=== PATIENT | male | born 1990 | race Caucasian/White ===

== ENCOUNTER 2018-04-03 14:26 | Emergency (ER) | payer OTHER ==
[~2018-04-03] VITALS: Ht 188 cm; Wt 120.5 kg
[~2018-04-03 14:26] MED LIST: DIPH-423 PO
[2018-04-03] MEDS ORDERED: normal saline 1000ML IV soln IVB ONE (14:45)
[2018-04-03 15:09] LABS: CLARITY,URINE CLEAR (Clear); COLOR,URINE YELLOW (Yellow); GLUCOSE, URINE NEGATIVE (Neg); KETONES,URINE NEGATIVE (Neg); LEUKOCYTE ESTERASE ,URINE NEGATIVE (Neg); NITRITES, URINE NEGATIVE (Neg); OCCULT BLOOD,URINE NEGATIVE (Neg); PROTEIN,URINE NEGATIVE (Neg); UROBILINOGEN,URINE 0.2 E.U/dL (0.2-1.0)
[2018-04-03 15:12] LABS: UA COLLECTION TYPE CLN CATCH MIDSTREAM
[2018-04-03 15:20] LABS: BASOPHILS # (AUTO) 0.1 X10'3 (0-0.2); BASOPHILS % (AUTO) 0.6 % (0-1); EOSINOPHILS # (AUTO) 0.3 X10'3 (0-0.9); EOSINOPHILS % (AUTO) 1.8 % (0-6); HEMATOCRIT 43.3 % (42.0-52.0); HEMOGLOBIN 15.1 g/dl (14.0-17.9); LYMPHOCYTES % (AUTO) 18.6 % (21-51); MEAN CORPUSCULAR HEMOGLOBIN 30.7 PG (27.0-31.0); MEAN CORPUSCULAR HGB CONC 34.9 % (33.0-36.5); MEAN CORPUSCULAR VOLUME 87.8 FL (78-98); MEAN PLATELET VOLUME 9.2 FL (7.4-10.4); MONOCYTES # (AUTO) 1.3 X10'3 (0-0.9); MONOCYTES % (AUTO) 8.3 % (2-12); NEUTROPHILS # (AUTO) 11.4 X10'3 (1.8-7.7); NEUTROPHILS % (AUTO) 70.7 % (42-75); PLATELET COUNT 218 X10'3 (140-440); RED BLOOD COUNT 4.93 X10'6 (4.70-6.10); RED CELL DISTRIBUTION WIDTH 13.2 % (11.5-14.5); WHITE BLOOD COUNT 16.1 X10'3 (4.5-11.0)
[2018-04-03 15:36] LABS: ALANINE AMINOTRANSFERASE 47 U/L (12-78); ALBUMIN 3.9 G/DL (3.4-5.0); ALBUMIN/GLOBULIN RATIO 1.1 (1.1-1.5); ALKALINE PHOSPHATASE 103 IU/L (46-116); ANION GAP 9 (8-16); BILIRUBIN,TOTAL 0.4 MG/DL (0.1-1.0); BLOOD UREA NITROGEN 16 MG/DL (7-18); BUN/CREATININE RATIO 13.2 (5.4-32.0); CALCIUM 8.7 MG/DL (8.5-10.1); CHLORIDE 103 MMOL/L (99-107); CREATININE 1.21 MG/DL (0.60-1.10); SODIUM 140 MMOL/L (135-145); TOTAL PROTEIN 7.6 G/DL (6.4-8.2); eGFR 72 ML/MIN
[2018-04-03] MEDS ORDERED: tamsulosin 0.4mg capsule PO STA (15:41)
[2018-04-03 15:42] LABS: GLUCOSE 86 MG/DL (70-104)
[2018-04-03] MEDS ORDERED: ketorolac tromethamine 15mg/ml inj. IV ONE (15:45)
[2018-04-03 15:48] LABS: ASPARTATE AMINO TRANSFERASE 13 U/L (10-37)
[2018-04-03] MEDS ORDERED: FLO0.4C PO (16:15)
[2018-04-03] MEDS ORDERED: NAPR-56 PO (16:15)
[2018-04-03] MEDS ORDERED: HYDR-565 PO (16:15)
[2018-04-03 16:34] VITALS: BP 117/63
== END 2018-04-03 16:37 | disposition home or self-care (01) ==
LOC: ER 14:26
DX: N20.0 Calculus of kidney (principal); Z79.899 Other long term (current) drug therapy
CPT/HCPCS: 36415; 74176; 80053; 81003; 83605; 84145; 85025; 87040; 96374; 99285; J1885; J7030

== ENCOUNTER 2019-03-17 16:50 | Emergency (ER) | payer OTHER ==
[~2019-03-17] VITALS: Ht 188 cm; Wt 120.5 kg
[2019-03-17] MEDS ORDERED: ketorolac tromethamine 15mg/ml inj. IV ONE (17:15)
[2019-03-17] MEDS ORDERED: morphine 4 MG/ML inj SYRINge IV ONE (17:25)
[2019-03-17] MEDS ORDERED: ondansetron/PF 4mg/2ml inj IV ONE (17:25)
[2019-03-17] MEDS ORDERED: normal saline 1000ML IV soln IVB ONE ×2 (17:25→19:15)
[2019-03-17] MEDS ORDERED: morphine 10mg/ml inj. IV ONE ×2 (17:30→19:15)
--- NOTE | 2019-03-17 17:56 | NUR ---
PT MEDICATED WITH TORADOL, MORPHINE, ZOFRAN AND 1L IVF.
[2019-03-17 18:09] LABS: BASOPHILS # (AUTO) 0.1 X10'3 (0-0.2); BASOPHILS % (AUTO) 0.3 % (0-1); EOSINOPHILS % (AUTO) 0.1 % (0-6); HEMATOCRIT 41.2 % (42.0-52.0); HEMOGLOBIN 14.1 g/dl (14.0-17.9); LYMPHOCYTES # (AUTO) 1.5 X10'3 (1.1-4.8); LYMPHOCYTES % (AUTO) 5.8 % (21-51); MEAN CORPUSCULAR HEMOGLOBIN 30.5 PG (27.0-31.0); MEAN CORPUSCULAR HGB CONC 34.1 g/dL (33.0-36.5); MEAN CORPUSCULAR VOLUME 89.5 FL (78-98); MEAN PLATELET VOLUME 9.1 FL (7.4-10.4); MONOCYTES # (AUTO) 1.6 X10'3 (0-0.9); MONOCYTES % (AUTO) 6.3 % (2-12); NEUTROPHILS # (AUTO) 22.5 X10'3 (1.8-7.7); NEUTROPHILS % (AUTO) 87.5 % (42-75); PLATELET COUNT 169 X10'3 (140-440); RED CELL DISTRIBUTION WIDTH 12.9 % (11.5-14.5)
[2019-03-17 18:11] LABS: WHITE BLOOD COUNT 25.7 X10'3 (4.5-11.0)
[2019-03-17 18:23] LABS: PLATELET ESTIMATE NORMAL; TOTAL CELLS COUNTED 100
[2019-03-17 18:24] LABS: ALANINE AMINOTRANSFERASE 46 U/L (12-78); ALBUMIN 3.8 G/DL (3.4-5.0); ALBUMIN/GLOBULIN RATIO 1.1 (1.1-1.5); ALKALINE PHOSPHATASE 74 IU/L (46-116); ANION GAP 11 (8-16); ASPARTATE AMINO TRANSFERASE 11 U/L (10-37); BILIRUBIN,TOTAL 0.4 MG/DL (0.1-1.0); BLOOD UREA NITROGEN 13 MG/DL (7-18); BUN/CREATININE RATIO 7.9 (5.4-32.0); CHLORIDE 105 MMOL/L (99-107); CREATININE 1.64 MG/DL (0.60-1.10); GLUCOSE 110 MG/DL (70-104); LIPASE 54 U/L (73-393); POTASSIUM 4.6 MMOL/L (3.5-5.1); SODIUM 139 MMOL/L (135-145); TOTAL CARBON DIOXIDE 23.5 MMOL/L (24-32); TOTAL PROTEIN 7.2 G/DL (6.4-8.2); eGFR 50 ML/MIN
[2019-03-17 18:24] LABS: CLARITY,URINE SLIGHTLY CLOUDY (Clear); COLOR,URINE YELLOW (Yellow); GLUCOSE, URINE NEGATIVE (Neg); KETONES,URINE NEGATIVE (Neg); LEUKOCYTE ESTERASE ,URINE NEGATIVE (Neg); NITRITES, URINE NEGATIVE (Neg); OCCULT BLOOD,URINE LARGE (Neg); PH,URINE 5.5 (4.8-8.0); PROTEIN,URINE TRACE mg/dl (Neg); UA COLLECTION TYPE VOIDED; UROBILINOGEN,URINE 0.2 E.U/dL (0.2-1.0)
[2019-03-17 18:32] LABS: BACTERIA,URINE FEW /HPF (Neg); SQUAMOUS EPITHELIAL CELL,UR FEW /LPF (FEW); WBC,URINE NONE SEEN /HPF (0-4)
[2019-03-17 18:46] LABS: CALCIUM 8.6 MG/DL (8.5-10.1)
[2019-03-17] MEDS ORDERED: FLO0.4C PO (19:15)
[2019-03-17 20:08] VITALS: BP 140/97
== END 2019-03-17 20:13 | disposition home or self-care (01) ==
LOC: ER 16:50
DX: N20.0 Calculus of kidney (principal); R11.10 Vomiting, unspecified; E66.9 Obesity, unspecified; Z79.899 Other long term (current) drug therapy
CPT/HCPCS: 36415; 80053; 81001; 83690; 85025; 85610; 96361; 96374; 96375; 96376; 99283; J1885; J2270; J2405; J7030

== ENCOUNTER 2019-04-06 09:01 | Emergency (ER) | payer OTHER ==
[~2019-04-06] VITALS: Ht 188 cm; Wt 130.0 kg
[~2019-04-06 09:01] MED LIST changes: +FLO0.4C PO
[2019-04-06 10:14] LABS: BASOPHILS # (AUTO) 0.1 X10'3 (0-0.2); BASOPHILS % (AUTO) 0.7 % (0-1); EOSINOPHILS # (AUTO) 0.3 X10'3 (0-0.9); EOSINOPHILS % (AUTO) 2.4 % (0-6); HEMATOCRIT 45.1 % (42.0-52.0); HEMOGLOBIN 15.4 g/dl (14.0-17.9); LYMPHOCYTES # (AUTO) 5.1 X10'3 (1.1-4.8); MEAN CORPUSCULAR HEMOGLOBIN 30.1 PG (27.0-31.0); MEAN CORPUSCULAR HGB CONC 34.2 g/dL (33.0-36.5); MEAN PLATELET VOLUME 9.4 FL (7.4-10.4); MONOCYTES # (AUTO) 1.4 X10'3 (0-0.9); MONOCYTES % (AUTO) 11.1 % (2-12); NEUTROPHILS # (AUTO) 6.1 X10'3 (1.8-7.7); NEUTROPHILS % (AUTO) 46.8 % (42-75); PLATELET COUNT 220 X10'3 (140-440); RED BLOOD COUNT 5.12 X10'6 (4.70-6.10)
[2019-04-06] MEDS ORDERED: normal saline 1000ML IV soln IVB ONE (10:25)
[2019-04-06] MEDS ORDERED: meperidine/PF 50mg/ml syringe IV ONE ×3 (10:25→12:35)
[2019-04-06] MEDS ORDERED: sildenafil citrate 20mg tablet PO SCH (10:25)
[2019-04-06] MEDS ORDERED: ketorolac trometh. 30mg/ml inj. IV ONE (10:25)
[2019-04-06 10:29] LABS: ALANINE AMINOTRANSFERASE 47 U/L (12-78); ALBUMIN 4.5 G/DL (3.4-5.0); ALBUMIN/GLOBULIN RATIO 1.2 (1.1-1.5); ALKALINE PHOSPHATASE 80 IU/L (46-116); ANION GAP 10 (8-16); ASPARTATE AMINO TRANSFERASE 9 U/L (10-37); BILIRUBIN,TOTAL 0.4 MG/DL (0.1-1.0); BLOOD UREA NITROGEN 19 MG/DL (7-18); BUN/CREATININE RATIO 14.5 (5.4-32.0); CHLORIDE 107 MMOL/L (99-107); CREATININE 1.31 MG/DL (0.60-1.10); GLUCOSE 115 MG/DL (70-104); SODIUM 144 MMOL/L (135-145); TOTAL CARBON DIOXIDE 26.9 MMOL/L (24-32); TOTAL PROTEIN 8.2 G/DL (6.4-8.2); eGFR 65 ML/MIN
[2019-04-06] MEDS ORDERED: NAPR-56 PO (12:34)
[2019-04-06] MEDS ORDERED: HYDR-4353 PO (12:34)
[2019-04-06] MEDS ORDERED: TADA20TA PO (12:34)
[2019-04-06 13:29] VITALS: BP 113/70
== END 2019-04-06 13:36 | disposition home or self-care (01) ==
LOC: ER 09:02
DX: N23 Unspecified renal colic (principal); Z87.442 Personal history of urinary calculi; Z79.899 Other long term (current) drug therapy
CPT/HCPCS: 36415; 74176; 80053; 85025; 85610; 96374; 96375; 96376; 99284; J1885; J2175; J7030

== ENCOUNTER 2019-05-03 03:35 | Emergency (ER) | payer OTHER ==
[~2019-05-03] VITALS: Ht 182.9 cm; Wt 129.0 kg
[~2019-05-03 03:35] MED LIST changes: -FLO0.4C PO; +NAPR-56 PO; +TADA20TA PO
[2019-05-03] MEDS ORDERED: acetaminophen 325mg tablet PO ONE (04:00)
[2019-05-03] MEDS ORDERED: normal saline 1000ML IV soln IVB ONE (04:00)
[2019-05-03] MEDS ORDERED: penicillin V potassium 500mg tablet PO ONE (04:30)
[2019-05-03] MEDS ORDERED: PENI500T2 PO (04:32)
[2019-05-03] MEDS ORDERED: HYDR-4383 PO (05:10)
[2019-05-03 05:16] VITALS: BP 132/78
== END 2019-05-03 05:18 | disposition home or self-care (01) ==
LOC: ER 03:36
DX: J02.0 Streptococcal pharyngitis (principal); R11.2 Nausea with vomiting, unspecified; Z87.442 Personal history of urinary calculi; Z79.2 Long term (current) use of antibiotics; Z79.899 Other long term (current) drug therapy
CPT/HCPCS: 87880; 96360; 99283; J7030

== ENCOUNTER 2019-08-21 07:45 | Emergency (ER) | payer OTHER ==
[~2019-08-21] VITALS: Ht 188 cm; Wt 127.0 kg
[~2019-08-21 07:45] MED LIST changes: +HYDR-4383 PO; -NAPR-56 PO
--- NOTE | 2019-08-21 07:56 | NUR ---
PAIN STARTING AT LEFT FLANK AREA RADIATING TO LEFT ABD.
[2019-08-21] MEDS ORDERED: ondansetron/PF 4mg/2ml inj IV ONE (08:05)
[2019-08-21] MEDS ORDERED: normal saline 1000ML IV soln IVB ONE (08:05)
[2019-08-21] MEDS ORDERED: LORazepam 2 mg/ml vial IV ONE (08:05)
[2019-08-21] MEDS ORDERED: ketorolac trometh. 30mg/ml inj. IV ONE (08:05)
[2019-08-21] MEDS ORDERED: tamsulosin 0.4mg capsule PO ONE (08:14)
[2019-08-21] MEDS: morphine 4 MG/ML inj SYRINge IV PRN ×2 (08:17→08:44)
[2019-08-21 08:28] LABS: BASOPHILS # (AUTO) 0.1 X10'3 (0-0.2); BASOPHILS % (AUTO) 0.8 % (0-1); EOSINOPHILS # (AUTO) 0.3 X10'3 (0-0.9); EOSINOPHILS % (AUTO) 2.6 % (0-6); HEMATOCRIT 43.3 % (42.0-52.0); HEMOGLOBIN 14.9 g/dl (14.0-17.9); LYMPHOCYTES # (AUTO) 5.1 X10'3 (1.1-4.8); LYMPHOCYTES % (AUTO) 38.2 % (21-51); MEAN CORPUSCULAR HEMOGLOBIN 30.1 PG (27.0-31.0); MEAN CORPUSCULAR HGB CONC 34.4 g/dL (33.0-36.5); MEAN CORPUSCULAR VOLUME 87.7 FL (78-98); MEAN PLATELET VOLUME 9.4 FL (7.4-10.4); MONOCYTES # (AUTO) 1.4 X10'3 (0-0.9); MONOCYTES % (AUTO) 10.7 % (2-12); NEUTROPHILS # (AUTO) 6.3 X10'3 (1.8-7.7); NEUTROPHILS % (AUTO) 47.7 % (42-75); PLATELET COUNT 204 X10'3 (140-440); RED BLOOD COUNT 4.94 X10'6 (4.70-6.10); RED CELL DISTRIBUTION WIDTH 13.1 % (11.5-14.5); WHITE BLOOD COUNT 13.3 X10'3 (4.5-11.0)
[2019-08-21 08:30] LABS: CLARITY,URINE CLOUDY (Clear); COLOR,URINE YELLOW (Yellow); GLUCOSE, URINE NEGATIVE (Neg); KETONES,URINE NEGATIVE (Neg); LEUKOCYTE ESTERASE ,URINE NEGATIVE (Neg); OCCULT BLOOD,URINE LARGE (Neg); PH,URINE 5.5 (4.8-8.0); PROTEIN,URINE 100 mg/dl (Neg)
[2019-08-21 08:46] LABS: ALANINE AMINOTRANSFERASE 34 U/L (12-78); ALBUMIN 3.9 G/DL (3.4-5.0); ALBUMIN/GLOBULIN RATIO 1.1 (1.1-1.5); ALKALINE PHOSPHATASE 76 IU/L (46-116); ANION GAP 9 (8-16); ASPARTATE AMINO TRANSFERASE 6 U/L (10-37); BILIRUBIN,TOTAL 0.2 MG/DL (0.1-1.0); BLOOD UREA NITROGEN 12 MG/DL (7-18); BUN/CREATININE RATIO 13.5 (5.4-32.0); CALCIUM 8.7 MG/DL (8.5-10.1); CHLORIDE 109 MMOL/L (99-107); CREATININE 0.89 MG/DL (0.60-1.10); GLUCOSE 136 MG/DL (70-104); SODIUM 142 MMOL/L (135-145); TOTAL CARBON DIOXIDE 24.1 MMOL/L (24-32); TOTAL PROTEIN 7.4 G/DL (6.4-8.2); eGFR > 90 ML/MIN
[2019-08-21] MEDS ORDERED: HYDROmorphone 1 mg/ml syringe IV ONE (08:55)
[2019-08-21] MEDS ORDERED: proCHLORperazine 10 MG/2 ml inj IV ONE (08:55)
[2019-08-21 09:04] LABS: UA COLLECTION TYPE NON-SPECIFIED
[2019-08-21 09:09] LABS: NITRITES, URINE NEGATIVE (Neg)
[2019-08-21 09:10] LABS: RBC,URINE TNTC /HPF (0-2); SQUAMOUS EPITHELIAL CELL,UR FEW /LPF (FEW); WBC,URINE 0-4 /HPF (0-4)
[2019-08-21 09:11] LABS: CAL OXALATE CRYSTALS FEW /HPF (NEGATIVE); MUCUS STRANDS MODERATE /LPF (Neg)
[2019-08-21 09:12] LABS: BACTERIA,URINE FEW /HPF (Neg); HYALINE CASTS 0-3 /LPF (NEGATIVE)
[2019-08-21] MEDS ORDERED: ONDA4TAB6 PO (09:46)
[2019-08-21] MEDS ORDERED: FLO0.4C PO (09:46)
[2019-08-21] MEDS ORDERED: KETO10TA2 PO (09:46)
--- NOTE | 2019-08-21 10:11 | NUR ---
PT SLEEPING QUIETLY.
[2019-08-21 10:29] VITALS: BP 129/82
== END 2019-08-21 10:32 | disposition home or self-care (01) ==
LOC: ER 07:45
DX: N23 Unspecified renal colic (principal); Z87.442 Personal history of urinary calculi; Z79.899 Other long term (current) drug therapy
CPT/HCPCS: 36415; 76775; 80053; 81001; 85025; 87088; 96374; 96375; 96376; 99284; J0780; J1170; J1885; J2060; J2270; J2405; J7030

== ENCOUNTER 2022-10-15 19:34 | Emergency (ER) | payer OTHER, MEDICAID ==
[~2022-10-15] VITALS: Ht 190.5 cm; Wt 131.8 kg
[~2022-10-15 19:34] MED LIST changes: +KETO10TA2 PO; +ONDA4TAB6 PO
[2022-10-15 19:47] VITALS: BP 148/91
[2022-10-15] MEDS ORDERED: sulfamethoxazole/trimethoprim DS (800/160mg) tablet PO ONE (20:20)
[2022-10-15] MEDS ORDERED: SULF1TAB45 PO (20:20)
== END 2022-10-15 20:49 | disposition home or self-care (01) ==
LOC: ER 19:35
DX: L08.89 Other specified local infections of the skin and subcutaneous tissue (principal)
CPT/HCPCS: 10060; 99283; A6449

== ENCOUNTER 2022-10-20 06:26 | Emergency (ER) | payer OTHER, MEDICAID ==
[~2022-10-20 06:26] MED LIST changes: +SULF1TAB45 PO
== END 2022-10-20 07:16 | disposition left against medical advice (07) ==
LOC: ER 06:27
DX: M79.646 Pain in unspecified finger(s) (principal); Z53.21 Procedure and treatment not carried out due to patient leaving prior to being seen by health care provider

== ENCOUNTER 2023-06-06 17:39 | Emergency (ER) | payer MEDICAID, OTHER ==
[~2023-06-06] VITALS: Ht 188 cm; Wt 138.2 kg
[~2023-06-06 17:39] MED LIST changes: -SULF1TAB45 PO
[2023-06-06 17:41] VITALS: BP 143/98; PULSE 105; RESP 18; TEMP 98.2; O2SAT 100
[2023-06-06] MEDS ORDERED: aspirin 81mg tab.chew PO ONE (17:45)
[2023-06-06 18:18] LABS: BASOPHILS # (AUTO) 0.2 X10'3 (0-0.2); BASOPHILS % (AUTO) 1.1 % (0-1); EOSINOPHILS # (AUTO) 0.4 X10'3 (0-0.9); EOSINOPHILS % (AUTO) 2.2 % (0-6); HEMOGLOBIN 15.2 g/dl (14.0-17.9); LYMPHOCYTES # (AUTO) 4.7 X10'3 (1.1-4.8); MEAN CORPUSCULAR HEMOGLOBIN 30.6 PG (27.0-31.0); MEAN CORPUSCULAR HGB CONC 33.7 g/dL (33.0-36.5); MEAN CORPUSCULAR VOLUME 90.8 FL (78-98); MONOCYTES # (AUTO) 1.7 X10'3 (0-0.9); MONOCYTES % (AUTO) 10.1 % (2-12); NEUTROPHILS # (AUTO) 9.9 X10'3 (1.8-7.7); NEUTROPHILS % (AUTO) 58.6 % (42-75); PLATELET COUNT 219 X10'3 (140-440); RED BLOOD COUNT 4.96 X10'6 (4.70-6.10); RED CELL DISTRIBUTION WIDTH 13.1 % (11.5-14.5); WHITE BLOOD COUNT 16.8 X10'3 (4.5-11.0)
[2023-06-06 18:33] LABS: ALANINE AMINOTRANSFERASE 33 U/L (12-78); ALBUMIN/GLOBULIN RATIO 1.2 (1.1-1.5); ALKALINE PHOSPHATASE 72 IU/L (46-116); ANION GAP 6 (8-16); ASPARTATE AMINO TRANSFERASE 12 U/L (10-37); BILIRUBIN,TOTAL 0.4 MG/DL (0.1-1.0); BLOOD UREA NITROGEN 11 MG/DL (7-18); BUN/CREATININE RATIO 10.9 (10.0-20.0); CALCIUM 9.3 MG/DL (8.5-10.1); CHLORIDE 102 MMOL/L (99-107); CREATININE 1.01 MG/DL (0.60-1.10); GLUCOSE 82 MG/DL (70-104); SODIUM 139 MMOL/L (135-145); TOTAL CARBON DIOXIDE 31.1 MMOL/L (24-32); TOTAL PROTEIN 7.4 G/DL (6.4-8.2); eCRCL 122 ML/MIN; eGFR 86 ML/MIN
[2023-06-06 18:40] LABS: MAGNESIUM 2.1 MG/DL (1.5-2.4)
[2023-06-06 18:53] LABS: PRO BRAIN NATRIURETIC PEPTIDE < 30 PG/ML (0-125)
== END 2023-06-06 21:32 | disposition home or self-care (01) ==
LOC: ER 17:39
DX: R07.89 Other chest pain (principal); I88.9 Nonspecific lymphadenitis, unspecified; Z79.899 Other long term (current) drug therapy
CPT/HCPCS: 36415; 71045; 80053; 83735; 83880; 84484; 85025; 93005; 99285; A5200

== ENCOUNTER 2024-02-14 22:07 | Emergency (ER) | payer OTHER, MEDICAID ==
[~2024-02-14] VITALS: Ht 188 cm; Wt 13.9 kg
[2024-02-14] MEDS ORDERED: CLIN150C2 PO (23:52)
[2024-02-14] MEDS ORDERED: VALA100031 PO (23:52)
[2024-02-15] MEDS: clindamycin 150mg capsule PO ONE (00:03)
[2024-02-15] MEDS: ondansetron 4mg rapidly disintigrating tab PO ONE (00:03)
[2024-02-15 00:21] VITALS: BP 147/87; PULSE 89; RESP 18; TEMP 98.3; O2SAT 98
== END 2024-02-15 00:23 | disposition home or self-care (01) ==
LOC: ER 22:08
DX: B00.1 Herpesviral vesicular dermatitis (principal); Z79.2 Long term (current) use of antibiotics; Z79.899 Other long term (current) drug therapy
CPT/HCPCS: 99284

== ENCOUNTER 2024-10-27 21:43 | Emergency (ER) | payer OTHER, MEDICAID ==
[~2024-10-27] VITALS: Ht 190.5 cm; Wt 138.1 kg
[~2024-10-27 21:43] MED LIST changes: +VALA100031 PO
[2024-10-27] MEDS: LIDOcaine 1% W/epiNEPHrine 1:100,000 20ml vial SQ ONE (22:43)
[2024-10-27] MEDS: cephalexin 250mg capsule PO ONE (23:05)
[2024-10-27] MEDS ORDERED: CEPH-585 PO (23:16)
[2024-10-27 23:31] VITALS: BP 145/92; PULSE 85; RESP 16; TEMP 98.5; O2SAT 98
== END 2024-10-27 23:34 | disposition home or self-care (01) ==
LOC: ER 21:44
DX: L03.116 Cellulitis of left lower limb (principal)
CPT/HCPCS: 10060; 99283